=== PATIENT | female | born 1990 | race Caucasian/White ===

== ENCOUNTER 2016-07-08 08:28 | Emergency (ER) | payer MEDICAID ==
[~2016-07-08] VITALS: Ht 152.4 cm; Wt 62.0 kg
[~2016-07-08 08:28] MED LIST: FAMO-18 PO; FERR240T9 PO; FOLI0.4T2 PO; PREN-39 PO
[2016-07-08 08:34] VITALS: Ht 152.4 cm; Wt 62.0 kg
[2016-07-08] MEDS ORDERED: SOD CHLORIDE 0.9% 1,000 ML IV ONE (09:30)
[2016-07-08] MEDS ORDERED: ACETAMINOPHEN 325 MG TAB PO ONE (09:30)
[2016-07-08] MEDS ORDERED: DIPHENHYDRAMINE 25 MG CAP PO ONE (09:30)
--- NOTE | 2016-07-08 10:41 | ERD ---
ER Documentation Chief Complaint Date/Time DATE: 07/08/16 TIME: 10:35 Chief Complaint complains of right eye pain since this am HPI This is a 25-year-old female presenting to emergency department for headache and bilateral eye pain 1 day. Patient states symptoms started this morning. Patient has bitemporal headache that radiates from bilateral eyes. Patient states pain is throbbing. No drainage or tearing from eyes. No blurry vision or change in vision. No loss of vision or curtain coming down over eye. No floaters or flashing lights. No halos around lights. Denies weakness or fatigue. No facial droop. No fevers or chills. Patient states she is 10 weeks with last menstrual period 04/10/2016. Patient is a A0. Patient has nausea with no vomiting. No head trauma or injury. No rhinorrhea, nasal congestion or rhinitis. No relevant medical history. No surgical history. ROS All systems reviewed and are negative except as per history of present illness. Medications Home Meds Active Scripts Acetaminophen* (Acetaminophen*) 500 MG Extra Strength Tablet, 500 MG PO Q4H Y for PAIN AND OR ELEVATED TEMP, #15 TAB Prov:CANDY IBARRA NP 07/08/16 Famotidine* (Pepcid*) 20 Mg Tablet, 20 MG PO BID Y for PAIN, #30 TAB Prov:EMELY CASTILLO MD 10/17/14 Reported Medications Folic Acid* (Folic Acid*) 0.4 Mg Tablet, 0.8 MG PO DAILY, TAB 11/05/13 Ferrous Gluconate (Iron) 1 Tab Tablet, 1 TAB PO DAILY 11/05/13 Vits W-Ca,Fe,Fa(<1MG) ( Vitamins) 1 Tab Tablet, 1 TAB PO DAILY 09/19/13 Allergies Allergies: Coded Allergies: No Known Drug Allergies (Verified Allergy, Unknown, 12/30/14) PMhx/Soc History of Surgery: No Anesthesia Reaction: No Hx Neurological Disorder: No Hx Respiratory Disorders: No Hx Cardiac Disorders: No Hx Psychiatric Problems: No Hx Miscellaneous Medical Probl: No Hx Alcohol Use: No Hx Substance Use: No Hx Tobacco Use: No Physical Exam Vitals Vital Signs Date Time Temp Pulse Resp B/P Pulse Ox O2 Delivery O2 Flow Rate FiO2 07/08/16 12:33 95 18 107/55 99 Room Air 07/08/16 08:34 98.1 104 20 124/64 98 Physical Exam Const: No acute distress, alert Head: Atraumatic Eyes: Normal Conjunctiva, PERRL, extraocular movements intact, no nystagmus ENT: Normal External Ears, Nose and Mouth. Neck: Full range of motion..~ No meningismus. Resp: Clear to auscultation bilaterally. No wheezing, rhonchi or crackles. Cardio: Regular rate and rhythm, no murmurs Abd: Soft, non tender, non distended. Normal bowel sounds Skin: No petechiae or rashes Back: No midline or flank tenderness Ext: No cyanosis, or edema Neur: Awake and alert Psych: Normal Mood and Affect Results 24 hrs Laboratory Tests Test 07/08/16 11:58 Bedside Urine pH (LAB) 8.5 Bedside Urine Protein (LAB) 1+ Bedside Urine Glucose (UA) Negative Bedside Urine Ketones (LAB) Negative Bedside Urine Blood Negative Bedside Urine Nitrite (LAB) Negative Bedside Urine Leukocyte Esterase (L Negative Current Medications Medications (Trade) Dose Ordered Sig/[place] Route PRN Reason Start Time Stop Time Status Last Admin Dose Admin Acetaminophen (Tylenol Tab) 650 mg ONCE ONCE PO 07/08/16 09:30 07/08/16 09:31 DC 07/08/16 09:20 Diphenhydramine HCl 25 mg 25 mg ONCE ONCE PO 07/08/16 09:30 07/08/16 09:31 DC 07/08/16 09:20 Sodium Chloride (NS) 1,000 ml @ 1,000 mls/hr Q1H ONCE IV 07/08/16 09:30 07/08/16 10:29 DC 07/08/16 09:20 Procedures/MDM Laboratory Urine dip 1+ protein MDM: 25-year-old female presents emergency department for bitemporal headache that radiates behind bilateral eye pain starting this morning. No subconjunctival hemorrhage or erythema to eye. No drainage or discharge from eye. No visual changes. No diplopia. Patient has throbbing headache to bitemporal area. No recent head injury or trauma. Patient has nausea with no vomiting. No neurological deficits. Physical exam is unremarkable. Patient is 10 weeks with last mental period 04/10/2016. Denies any vaginal bleeding or pelvic pain. No dysuria or hematuria. Visual acuity normal. Urine dip is negative for infection. Patient given Tylenol and Benadryl while in the ED. Due to patient being , other medications for treating headaches and migraines are contraindicated in patients. Upon reassessment, patient's headache has improved. No active vomiting while in the ED. Consulted Dr. Flor regarding this patient and we agree that patient is appropriate for outpatient management. Low suspicion for intracranial hemorrhage, mass, CVA or TIA. Patient's diagnosis is likely tension headache vs. migraine headache. Patient is appropriate for outpatient management and instructed patient to follow up with PCP int he next 2-3 days for reassessment. Return to ED for any new or worsening symptoms. Patient verbalizes understanding. All questions answered at discharge. Departure Diagnosis: Primary Impression: Headache Headache type: unspecified Headache chronicity pattern: acute headache Intractability: not intractable Qualified Code: R51 - Acute nonintractable headache, unspecified headache type Condition: Stable CANDY IBARRA NP July 08, 2016 10:41
[2016-07-08 11:57] LABS: URINE BLOOD (Dip) POC Negative (NEGATIVE)
[2016-07-08] MEDS ORDERED: ACET-141 PO (12:28)
[2016-07-08 12:33] VITALS: BP 107/55; PULSE 95; RESP 18
== END 2016-07-08 13:10 | disposition home or self-care (01) ==
LOC: FTE 08:28
DX: R51 Headache (principal)
CPT/HCPCS: 81003; J7030; Z7502; Z7610

== ENCOUNTER 2016-12-13 15:34 | Inpatient (IN) | payer MEDICAID ==
[~2016-12-13] VITALS: Ht 154.9 cm; Wt 69.0 kg
[~2016-12-13 15:34] MED LIST changes: +ACET-141 PO; -FAMO-18 PO; +FAMO-96 PO
[2016-12-13 15:46] VITALS: Ht 154.9 cm; Wt 69.0 kg
[2016-12-13 15:47] VITALS: BP 106/59; PULSE 109
--- NOTE | 2016-12-13 18:00 | RADRPT ---
PROCEDURE: Limited obstetric ultrasound CLINICAL INDICATION: Pain TECHNIQUE: Multiple transverse and longitudinal grayscale images of the pelvis were obtained camarena sabdominally and transvaginally.. COMPARISON: None FINDINGS: The cervix is closed with a length of 2.95 cm. There is a single viable intrauterine gestation. Cardiac activity is present with 144 beats per min [place]. There is a vertex presentation. The placenta is anterior. There is no evidence for an abruption or placenta previa. RPTAT: AA IMPRESSION: Cervix length measures 2.95 cm. .Ambrocio Luna MD, MD Date Time Electronically viewed and signed by .Ambrocio Luna MD, on 12/13/2016 18:00 .S/
[2016-12-13 18:17] LABS: ADD UMIC YES; UR ASCORBIC ACID 20 mg/dL (NEGATIVE); UR BACTERIA FEW /HPF (NONE SEEN); UR BILIRUBIN (Dip) NEGATIVE (NEGATIVE); UR BLOOD (Dip) NEGATIVE (NEGATIVE); UR CLARITY CLOUDY (CLEAR); UR COLOR AMBER (YELLOW); UR GLUCOSE (Dip) NEGATIVE (NEGATIVE); UR KETONES (Dip) 2+ mg/dL (NEGATIVE); UR LEUKOCYTE ESTERASE (Dip) 3+ Leu/ul (NEGATIVE); UR MUCUS MANY /HPF (NONE SEEN); UR NITRITE (Dip) NEGATIVE (NEGATIVE); UR RBC 13 /HPF (0-5); UR SPECIFIC GRAVITY (Dip) 1.021 (1.003-1.030); UR SQUAMOUS EPITHELIAL CELL FEW /HPF (FEW); UR TOTAL PROTEIN (Dip) 1+ mg/dl (NEGATIVE); UR UROBILINOGEN (Dip) 1+ mg/dL (NEGATIVE)
[2016-12-13] MEDS: LACTATED RINGER'S 1,000 ML IV SCH (20:19)
[2016-12-13] MEDS ORDERED: MAGNESIUM SULFATE 4 GM/100 ML 100 ML IV ONE (20:30)
[2016-12-13] MEDS ORDERED: AL HYDROX/MG HYDROX/SIMETH 30 ML CUP PO PRN (20:30)
[2016-12-13] MEDS ORDERED: ACETAMINOPHEN 325 MG TAB PO PRN (20:30)
[2016-12-13] MEDS: BETAMET NA PHOS/AC(6 MG/ML) 5ML INJ IM SCH (21:09)
--- NOTE | 2016-12-13 21:13 | TRIAGE ---
OB Triage Datetime Report Generated by CPN: 12/13/2016 21:13 Datetime: 12/13/2016 20:00 Stage of : Antepartum Datetime: 12/13/2016 19:45 Stage of : OB Triage Datetime: 12/13/2016 19:39 Stage of : OB Triage Monitor Mode: External Quality: Mild Pattern: Normal: <= 5 Contractions in 10 Minutes Resting Tone [place]: Relaxed Heart Rate FHR Baseline Rate: 130 Monitor Mode: External US FHR Baseline Changes: No Baseline Change Variability: Moderate 6-25 bpm Accelerations: 15X15 Decelerations: None Category: Category I Pain Assessment Pain Scale: 0 Pain Presence: None/Denies Pain Type: N/A Vaginal Exam Dilatation (cms): 1.0 Effacement (%): 40 Station: -3 Exam By: Vincenzo DENG Membrane Status: Intact Vaginal Bleeding: None Cervix, Consistency: Soft Cervix, Position: Posterior Presentation 'A': Cephalic Datetime: 12/13/2016 18:24 Stage of : OB Triage Datetime: 12/13/2016 17:32 Labor Evaluation Frequency: 0 Monitor Mode: External Resting Tone [place]: Relaxed Heart Rate FHR Baseline Rate: 135 Monitor Mode: External US Variability: Moderate 6-25 bpm Decelerations: None Pain Assessment Pain Scale: 0 Pain Presence: None/Denies Pain Type: N/A Pain Goal: 3 Pain Relief Measures: Comfort Measures Datetime: 12/13/2016 16:41 Labor Evaluation Frequency: OCCAS Monitor Mode: External Duration (sec)2399: 50-60 Quality: Mild Pattern: Normal: <= 5 Contractions in 10 Minutes Resting Tone [place]: Relaxed Heart Rate FHR Baseline Rate: 135 Monitor Mode: External US Variability: Moderate 6-25 bpm Accelerations: 10X10 Decelerations: None Category: Category I Pain Assessment Pain Scale: 1 Pain Presence: Intermittent Pain Type: Cramping Pain Goal: 3 Pain Relief Measures: Comfort Measures Datetime: 12/13/2016 15:50 Stage of : OB Triage Datetime: 12/13/2016 15:42 Stage of : OB Triage Assessment Type: Triage EGA: 33.0 Arrived By: Wheelchair Maternal Assessment Level of Consciousness: Fully Conscious DTR's/Clonus: DTRs 2+; No Clonus Headache: Denies Blurred Vision: No Respiratory Effort: Unlabored; Regular Rhythm; Equal Expansion Breath Sounds, Left: Clear and Equal Breath Sounds, Right: Clear and Equal Nausea/Vomiting: Denies RUQ Epigastric Pain: Denies Facial Edema: None Temperature Route: Axillary Fall Risk Assessment History of Falling: (0) No Secondary Diagnosis: (0) No Ambulatory Aid: (0) Bedrest/Nurse Assist IV Therapy: (0) No Gait: (0) Normal/Bedrest/Immobile Mental Status: (0) Oriented to Own Ability Fall Score: 0 Fall Risk Score Definition: No Risk: No action required Labor Evaluation Frequency: 0 Monitor Mode: External Resting Tone [place]: Relaxed Heart Rate FHR Baseline Rate: 135 Monitor Mode: External US Variability: Moderate 6-25 bpm Accelerations: None Decelerations: None Category: Category I Pain Assessment Pain Scale: 0 Pain Presence: None/Denies Pain Type: Cramping (Annotations: WHEN WALKING, OR WHEN BABY MOVING) Pain Location: Abdomen Pain Goal: 3 Pain Relief Measures: Comfort Measures Datetime: 12/13/2016 15:40 Time of Arrival: 12/13/2016 15:25 Arrived By: Ambulatory Arrived From: Office Chief Complaint: SENT FROM DR OFFICE TO R/O PTL, DENIES LEAKING, SCANT BROWN DISCHARGE 2 DAYS AG O, UC'S Q 10 MIN Movement: Present Contractions: Regular Contractions: 10 Rupture of Membranes: Denies Vaginal Bleeding: None Vaginal Discharge: Denies Recent Sexual Intercouse: Denies Abdominal Trauma: Not Applicable Patient Complaints: Contractions Time Provider Notified: 12/13/2016 15:50 Provider Notified: terence Initial Plan: MONITOR, CERVICAL LENGTH, URINALYSIS
[2016-12-13] MEDS: MAGNESIUM SULFATE 20 GM/500 ML 500 ML IV SCH (21:48)
[2016-12-13 21:50] LABS: BASOPHILS % 0.3 % (0.0-2.0); EOSINOPHILS # 0.1 10^3/ul (0.0-0.5); EOSINOPHILS % 0.6 % (0.0-7.0); HEMATOCRIT 31.1 % (37.0-47.0); HEMOGLOBIN 9.8 g/dl (12.0-16.0); LYMPHOCYTES # 1.4 10^3/ul (0.8-2.9); LYMPHOCYTES % 14.3 % (15.0-51.0); MEAN CORPUSCULAR HEMOGLOBIN 27.1 pg (29.0-33.0); MEAN CORPUSCULAR HGB CONC 31.5 g/dl (32.0-37.0); MEAN CORPUSCULAR VOLUME 86.1 fl (82.0-101.0); MEAN PLATELET VOLUME 11.7 fl (7.4-10.4); MONOCYTE # 1.1 10^3/ul (0.3-0.9); MONOCYTES % 10.5 % (0.0-11.0); NEUTROPHIL # 7.4 10^3/ul (1.6-7.5); NEUTROPHILS % 73.5 % (39.0-77.0); PLATELET COUNT 158 10^3/UL (140-415); RED BLOOD COUNT 3.61 10^6/ul (4.20-5.40); RED CELL DISTRIBUTION WIDTH 14.2 % (11.5-14.5)
[2016-12-13 22:14] LABS: INR 1.01; PROTIME 13.3 Sec (12.2-14.2)
[2016-12-13 22:15] LABS: PARTIAL THROMBOPLASTIN TIME 35.4 Sec (25.0-35.0)
[2016-12-14] MEDS: LACTATED RINGER'S 1,000 ML IV SCH ×2 (06:24→18:36)
[2016-12-14] MEDS: MAGNESIUM SULFATE 20 GM/500 ML 500 ML IV SCH ×2 (06:37→16:37)
[2016-12-14] MEDS: PRENATAL VITAMIN PO SCH (09:08)
--- NOTE | 2016-12-14 19:20 | HP ---
Date/Time of Note Date/Time of Note DATE: 12/14/16 TIME: 19:18 OB - History Hx of Present Chief Complaint: contractions Estimated Due Date: Jan 31, 2017 : 5 Para: 4 Spontaneous : 0 Therapeutic : 0 Care: Good Care Ultrasounds: Normal mid trimester US Obstetrical Complications: None Medical Complications: None Past Family/Social History * Past Medical, Surgical, Family and Obstetric Histories reviewed from chart. OB Admission Exam Vital Signs Vital Signs Vital Signs Date Time Temp Pulse Resp B/P Pulse Ox O2 Delivery O2 Flow Rate FiO2 12/13/16 15:47 98.5 109 106/59 Physical Exam HEENT: WNL Heart: Rhythm Normal Lungs: Clear, Equal Abdomen: WNL Extremities: Normal Reflexes: Normal Cervical Dilatation: 1cm Effacement: 50% Station: -1 Membranes: Intact Heart Rate: 130's Accelerations: Accelerations Present Decelerations: No Decelerations Varibility: Moderate Last 72 hours Lab Results CBC & BMP 12/13/16 20:15 Magnesium Level Test 12/14/16 06:02 12/14/16 11:59 Magnesium Level 4.6 H 4.8 H OB Assessment/Plan Reason for admission: labor Plan: Other Other plan: IV magnesium sulfate IM betamethasone SETH VELEZ MD Dec 14, 2016 19:20
[2016-12-14] MEDS: BETAMET NA PHOS/AC(6 MG/ML) 5ML INJ IM SCH (21:12)
[2016-12-15] MEDS: MAGNESIUM SULFATE 20 GM/500 ML 500 ML IV SCH (01:33)
[2016-12-15] MEDS: LACTATED RINGER'S 1,000 ML IV SCH (07:21)
[2016-12-15] MEDS: PRENATAL VITAMIN PO SCH ×2 (09:00→09:13)
[2016-12-15] MEDS: NIFEdipine 10 MG CAP PO SCH ×2 (11:38→17:42)
--- NOTE | 2016-12-15 17:13 | QN ---
Documentation Comment Patient has been off magnesium sulfate andis doing well. Patient denies feeling any contractions. SETH VELEZ MD Dec 15, 2016 17:13
--- NOTE | 2016-12-15 17:14 | DS ---
Date/Time of Note Date/Time of Note DATE: 12/15/16 TIME: 17:13 Obstetrical Discharge Record Final Diagnosis Final Diagnosis: not delivered Other Final Diagnosis Threatened labor. Complications Labor Tocolytics: Magnesium Sulfate Condition on Discharge Physical Assessment Voiding: Yes Bowel Movement: Yes Calf Tenderness: No Patient Condition: Stable SETH VELEZ MD Dec 15, 2016 17:14
== END 2016-12-15 18:00 | disposition home or self-care (01) | DRG 780 ==
LOC: OBT 15:34 → L-D 15:36 → OBG 20:16 → OBT 20:16
PROVIDERS: ADMIT Obstetrics & Gynecology; ATTEND Obstetrics & Gynecology
DX: O47.03 False labor before 37 completed weeks of gestation, third trimester (principal); Z3A.33 33 weeks gestation of pregnancy
CPT/HCPCS: 36415; 76817; 81001; 83735; 85025; 85610; 85730; 86592; 86900; 86901; 87086; 96360; G0463; J0702; J3475; J7120

== ENCOUNTER 2017-01-12 17:56 | Outpatient (CLI) | payer MEDICAID, OTHER ==
[~2017-01-12] VITALS: Ht 154.9 cm; Wt 74.7 kg
[~2017-01-12 17:56] MED LIST changes: -ACET-141 PO
[2017-01-12 18:35] VITALS: BP 118/56; PULSE 89; RESP 20; Ht 154.9 cm; Wt 74.7 kg
--- NOTE | 2017-01-12 22:30 | RADRPT ---
PROCEDURE: Biophysical profile. CLINICAL INDICATION: Pelvic pain. TECHNIQUE: Multiple sonographic images of the pelvis were obtained with transabdominal technique. COMPARISON: 12/13/2016. FINDINGS: There is a single living intrauterine gestation with the fetus in a vertex position. The placenta i s anterior in location, grade II to III. heart tones of 143 beats per minute are identified. There is normal amniotic fluid volume with an DB of 9.8 cm. breathing movements = 2 Gross body movements = 2 tone = 2 Qualitative AFV = 2 IMPRESSION: Biophysical profile 8 out of 8. .Dominic Obrien MD, MD Date Time Electronically viewed and signed by .Dominic Obrien MD, MD on 01/12/2017 22:30 .T/
--- NOTE | 2017-01-12 23:26 | TRIAGE ---
OB Triage Datetime Report Generated by CPN: 01/12/2017 23:25 Datetime: 01/12/2017 22:38 Labor Evaluation Frequency: x3 Monitor Mode: External Duration (sec)2399: 40-100 Quality: Mild Resting Tone [place]: Relaxed Heart Rate FHR Baseline Rate: 135 Monitor Mode: External US Variability: Moderate 6-25 bpm Accelerations: 15X15 Decelerations: None Category: Category I Datetime: 01/12/2017 22:36 Stage of : OB Triage Datetime: 01/12/2017 22:03 Monitor Mode: External Monitor Mode: External US Datetime: 01/12/2017 21:53 Stage of : OB Triage Datetime: 01/12/2017 21:46 Stage of : OB Triage Datetime: 01/12/2017 21:32 Stage of : OB Triage Datetime: 01/12/2017 21:31 Stage of : OB Triage Labor Evaluation Frequency: x5 Monitor Mode: External Duration (sec)2399: 40-110 Quality: Mild Resting Tone [place]: Relaxed Heart Rate FHR Baseline Rate: 135 Monitor Mode: External US Variability: Moderate 6-25 bpm Accelerations: 15X15 Decelerations: None Category: Category I Datetime: 01/12/2017 20:54 Vaginal Exam Dilatation (cms): 3.5 Effacement (%): 50 Station: -3 Exam By: M YEAGER Vaginal Bleeding: None Cervix, Consistency: Firm Cervix, Position: Posterior Presentation 'A': Cephalic Datetime: 01/12/2017 20:15 Stage of : OB Triage Labor Evaluation Frequency: Occasional Monitor Mode: External Duration (sec)2399: 40-80 Quality: Mild Resting Tone [place]: Relaxed Heart Rate FHR Baseline Rate: 140 Monitor Mode: External US Variability: Moderate 6-25 bpm Accelerations: 15X15 Decelerations: None Category: Category I Datetime: 01/12/2017 19:17 Stage of : OB Triage Labor Evaluation Frequency: X5 Monitor Mode: External Duration (sec)2399: 40-130 Quality: Mild Resting Tone [place]: Relaxed Heart Rate FHR Baseline Rate: 140 Monitor Mode: External US Variability: Moderate 6-25 bpm Accelerations: 15X15 Decelerations: None Category: Category I Datetime: 01/12/2017 18:06 Maternal Assessment Level of Consciousness: Fully Conscious DTR's/Clonus: DTRs 2+ Headache: Denies Blurred Vision: No Nausea/Vomiting: Denies RUQ Epigastric Pain: Denies Facial Edema: None Labor Evaluation Frequency: 7-9 Monitor Mode: External Duration (sec)2399: 80 Quality: Moderate Pattern: Normal: <= 5 Contractions in 10 Minutes Resting Tone [place]: Relaxed Heart Rate FHR Baseline Rate: 160 Monitor Mode: External US FHR Baseline Changes: No Baseline Change Variability: Moderate 6-25 bpm Accelerations: 15X15 Decelerations: None Category: Category I Pain Assessment Pain Scale: 5 Pain Presence: Intermittent Pain Type: Contraction Pain Location: Abdomen Membrane Status: Intact Datetime: 01/12/2017 17:50 Time of Arrival: 01/12/2017 17:50 EGA: 37.2 Arrived By: Ambulatory Arrived From: Home Chief Complaint: UCS Movement: Present Contractions: Regular Time Contractions Began: 01/12/2017 07:00 Contractions: IRREG Rupture of Membranes: Denies Vaginal Bleeding: None Vaginal Discharge: Denies Recent Sexual Intercouse: Denies Abdominal Trauma: Not Applicable Patient Complaints: Contractions Provider Notified: DR VELEZ Initial Plan: EFM,CALL DR VELEZ Datetime: 12/15/2016 16:55 Labor Evaluation Frequency: NONE Pattern: Normal: <= 5 Contractions in 10 Minutes Heart Rate FHR Baseline Rate: 145 Monitor Mode: External US FHR Baseline Changes: No Baseline Change Variability: Moderate 6-25 bpm Accelerations: 15X15 Decelerations: None Category: Category I Pain Assessment Pain Scale: 0 Pain Presence: None/Denies Pain Goal: 0 Membrane Status: Intact Datetime: 12/15/2016 16:00 Maternal Assessment Level of Consciousness: Fully Conscious DTR's/Clonus: DTRs 2+ Headache: Denies Blurred Vision: No Nausea/Vomiting: Denies RUQ Epigastric Pain: Denies Facial Edema: None Heart Rate FHR Baseline Rate: 145 Monitor Mode: External US FHR Baseline Changes: No Baseline Change Variability: Moderate 6-25 bpm Accelerations: 15X15 Decelerations: None Category: Category I Membrane Status: Intact Datetime: 12/15/2016 15:01 Pattern: Normal: <= 5 Contractions in 10 Minutes Heart Rate FHR Baseline Rate: 135 Monitor Mode: External US FHR Baseline Changes: No Baseline Change Variability: Moderate 6-25 bpm Accelerations: 15X15 Decelerations: None Category: Category I Pain Assessment Pain Scale: 0 Pain Presence: None/Denies Pain Goal: 0 Membrane Status: Intact Datetime: 12/15/2016 13:58 Labor Evaluation Frequency: NONE Pattern: Normal: <= 5 Contractions in 10 Minutes Heart Rate FHR Baseline Rate: 135 Monitor Mode: External US FHR Baseline Changes: No Baseline Change Variability: Moderate 6-25 bpm Accelerations: 15X15 Decelerations: None Category: Category I Pain Assessment Pain Scale: 0 Pain Presence: None/Denies Pain Goal: 0 Membrane Status: Intact Datetime: 12/15/2016 13:00 Labor Evaluation Frequency: NONE Pattern: Normal: <= 5 Contractions in 10 Minutes Heart Rate FHR Baseline Rate: 145 Monitor Mode: External US FHR Baseline Changes: No Baseline Change Variability: Moderate 6-25 bpm Accelerations: 15X15 Decelerations: None Category: Category I Pain Assessment Pain Scale: 0 Pain Presence: None/Denies Pain Goal: 0 Membrane Status: Intact Datetime: 12/15/2016 11:57 Maternal Assessment Level of Consciousness: Fully Conscious DTR's/Clonus: DTRs 2+ Headache: Denies Blurred Vision: No Nausea/Vomiting: Denies RUQ Epigastric Pain: Denies Facial Edema: None Labor Evaluation Frequency: NONE Pattern: Normal: <= 5 Contractions in 10 Minutes Heart Rate FHR Baseline Rate: 140 Monitor Mode: External US FHR Baseline Changes: No Baseline Change Variability: Moderate 6-25 bpm Accelerations: 15X15 Decelerations: Variable Category: Category I Pain Assessment Pain Scale: 0 Pain Presence: None/Denies Pain Goal: 0 Membrane Status: Intact Datetime: 12/15/2016 11:00 Labor Evaluation Frequency: none Pattern: Normal: <= 5 Contractions in 10 Minutes Heart Rate FHR Baseline Rate: 130 Monitor Mode: External US FHR Baseline Changes: No Baseline Change Variability: Moderate 6-25 bpm Accelerations: 15X15 Decelerations: None Category: Category I Pain Assessment Pain Scale: 0 Pain Presence: None/Denies Pain Goal: 0 Membrane Status: Intact Datetime: 12/15/2016 09:56 Labor Evaluation Frequency: NONE Pattern: Normal: <= 5 Contractions in 10 Minutes Heart Rate FHR Baseline Rate: 120 Monitor Mode: External US FHR Baseline Changes: No Baseline Change Variability: Moderate 6-25 bpm Accelerations: 15X15 Decelerations: None Category: Category I Pain Assessment Pain Scale: 0 Pain Presence: None/Denies Pain Goal: 0 Pain Assessment Comments: PT DENIES C/O PAIN Membrane Status: Intact Datetime: 12/15/2016 09:00 Respiratory Effort: Unlabored Breath Sounds, Left: Clear and Equal Breath Sounds, Right: Clear and Equal Labor Evaluation Frequency: NONE Pattern: Normal: <= 5 Contractions in 10 Minutes Heart Rate FHR Baseline Rate: 135 Monitor Mode: External US FHR Baseline Changes: No Baseline Change Variability: Moderate 6-25 bpm Accelerations: 15X15 Decelerations: None Category: Category I Pain Assessment Pain Scale: 0 Pain Presence: None/Denies Pain Type: N/A Pain Goal: 0 Membrane Status: Intact Datetime: 12/15/2016 08:00 Maternal Assessment Level of Consciousness: Fully Conscious DTR's/Clonus: DTRs 2+ Headache: Denies Blurred Vision: No RUQ Epigastric Pain: Denies Facial Edema: None Labor Evaluation Frequency: none Pattern: Normal: <= 5 Contractions in 10 Minutes Heart Rate FHR Baseline Rate: 130 Monitor Mode: External US FHR Baseline Changes: No Baseline Change Variability: Moderate 6-25 bpm Accelerations: 15X15 Decelerations: None Category: Category I Pain Assessment Pain Scale: 1 Pain Presence: None/Denies Pain Goal: 1 Membrane Status: Intact Datetime: 12/15/2016 07:36 Maternal Assessment Level of Consciousness: Fully Conscious DTR's/Clonus: DTRs 2+; No Clonus Headache: Denies Blurred Vision: No Respiratory Effort: Unlabored; Regular Rhythm; Equal Expansion Breath Sounds, Left: Clear and Equal Breath Sounds, Right: Clear and Equal Nausea/Vomiting: Denies RUQ Epigastric Pain: Denies Facial Edema: None Fall Risk Assessment History of Falling: (0) No Secondary Diagnosis: (0) No Ambulatory Aid: (0) Bedrest/Nurse Assist IV Therapy: (0) No Gait: (0) Normal/Bedrest/Immobile Mental Status: (0) Oriented to Own Ability Fall Score: 0 Fall Risk Score Definition: No Risk: No action required Datetime: 12/15/2016 07:30 Maternal Assessment Level of Consciousness: Fully Conscious DTR's/Clonus: DTRs 2+ Headache: Denies Blurred Vision: No Respiratory Effort: Unlabored Breath Sounds, Left: Clear and Equal Breath Sounds, Right: Clear and Equal RUQ Epigastric Pain: Denies Facial Edema: None Labor Evaluation Frequency: NONE Pattern: Normal: <= 5 Contractions in 10 Minutes Heart Rate FHR Baseline Rate: 120 Monitor Mode: External US FHR Baseline Changes: No Baseline Change Variability: Moderate 6-25 bpm Accelerations: 15X15 Decelerations: None Category: Category I Pain Assessment Pain Scale: 0 Pain Presence: None/Denies Pain Goal: 0 Membrane Status: Intact Datetime: 12/15/2016 07:00 Labor Evaluation Frequency: 0 Monitor Mode: External Heart Rate FHR Baseline Rate: 115 Monitor Mode: External US FHR Baseline Changes: No Baseline Change Variability: Moderate 6-25 bpm Accelerations: 15X15 Decelerations: None Category: Category I Datetime: 12/15/2016 06:00 Labor Evaluation Frequency: 0 Monitor Mode: External Heart Rate FHR Baseline Rate: 120 Monitor Mode: External US FHR Baseline Changes: No Baseline Change Variability: Moderate 6-25 bpm Accelerations: 15X15 Decelerations: None Category: Category I Datetime: 12/15/2016 05:00 Labor Evaluation Frequency: X1 Monitor Mode: External Duration (sec)2399: 50 Quality: Mild Resting Tone [place]: Relaxed Heart Rate FHR Baseline Rate: 120 Monitor Mode: External US FHR Baseline Changes: No Baseline Change Variability: Moderate 6-25 bpm Accelerations: 15X15 Decelerations: None Category: Category I Datetime: 12/15/2016 04:00 Labor Evaluation Frequency: 0 Monitor Mode: External Heart Rate FHR Baseline Rate: 130 Monitor Mode: External US FHR Baseline Changes: No Baseline Change Variability: Moderate 6-25 bpm Accelerations: 15X15 Decelerations: None Category: Category I Datetime: 12/15/2016 03:39 Maternal Assessment Level of Consciousness: SLEEPING Breath Sounds, Left: Clear and Equal Breath Sounds, Right: Clear and Equal Temperature Route: Oral Pain Assessment Pain Scale: 0 Datetime: 12/15/2016 03:00 Labor Evaluation Frequency: 0 Monitor Mode: External Heart Rate FHR Baseline Rate: 120 Monitor Mode: External US FHR Baseline Changes: No Baseline Change Variability: Moderate 6-25 bpm Accelerations: 15X15 Decelerations: None Category: Category I Datetime: 12/15/2016 02:00 Labor Evaluation Frequency: 0 Monitor Mode: External Heart Rate FHR Baseline Rate: 120 Monitor Mode: External US FHR Baseline Changes: No Baseline Change Variability: Moderate 6-25 bpm Accelerations: 15X15 Decelerations: None Category: Category I Datetime: 12/15/2016 01:00 Labor Evaluation Frequency: 0 Monitor Mode: External Heart Rate FHR Baseline Rate: 125 Monitor Mode: External US FHR Baseline Changes: No Baseline Change Variability: Moderate 6-25 bpm Accelerations: 15X15 Decelerations: None Category: Category I Datetime: 12/15/2016 00:04 Labor Evaluation Frequency: 0 Monitor Mode: External Heart Rate FHR Baseline Rate: 130 Monitor Mode: External US FHR Baseline Changes: No Baseline Change Variability: Moderate 6-25 bpm Accelerations: 15X15 Decelerations: None Category: Category I Datetime: 12/14/2016 23:39 Maternal Assessment Level of Consciousness: Fully Conscious DTR's/Clonus: DTRs 2+ Breath Sounds, Left: Clear and Equal Breath Sounds, Right: Clear and Equal Temperature Route: Oral Pain Assessment Pain Scale: 0 Datetime: 12/14/2016 23:00 Labor Evaluation Frequency: 0 Monitor Mode: External Heart Rate FHR Baseline Rate: 130 Monitor Mode: External US FHR Baseline Changes: No Baseline Change Variability: Moderate 6-25 bpm Accelerations: 15X15 Decelerations: None Category: Category I Datetime: 12/14/2016 22:00 Labor Evaluation Frequency: 0 Monitor Mode: External Heart Rate FHR Baseline Rate: 130 Monitor Mode: External US FHR Baseline Changes: No Baseline Change Variability: Moderate 6-25 bpm Accelerations: 15X15 Decelerations: None Category: Category I Datetime: 12/14/2016 21:00 Labor Evaluation Frequency: 0 Monitor Mode: External Interventions: Side to Side Heart Rate FHR Baseline Rate: 130 Monitor Mode: External US FHR Baseline Changes: No Baseline Change Variability: Moderate 6-25 bpm Accelerations: 15X15 Decelerations: None Category: Category I Datetime: 12/14/2016 20:00 Labor Evaluation Frequency: 0 Monitor Mode: External Heart Rate FHR Baseline Rate: 130 Monitor Mode: External US FHR Baseline Changes: No Baseline Change Variability: Moderate 6-25 bpm Accelerations: 15X15 Decelerations: None Category: Category I Datetime: 12/14/2016 19:39 Assessment Type: Ongoing Assessment Maternal Assessment Level of Consciousness: Fully Conscious DTR's/Clonus: DTRs 2+; No Clonus Headache: Denies Blurred Vision: No Respiratory Effort: Unlabored; Regular Rhythm; Equal Expansion Breath Sounds, Left: Clear and Equal Breath Sounds, Right: Clear and Equal Nausea/Vomiting: Denies RUQ Epigastric Pain: Denies Lower Extremities Edema: None Upper Extremities Edema: None Facial Edema: None Temperature Route: Oral Fall Risk Assessment History of Falling: (0) No Secondary Diagnosis: (0) No Ambulatory Aid: (0) Bedrest/Nurse Assist IV Therapy: (20) Yes Gait: (0) Normal/Bedrest/Immobile Mental Status: (0) Oriented to Own Ability Fall Score: 20 Fall Risk Score Definition: No Risk: No action required Pain Assessment Pain Scale: 0 Datetime: 12/14/2016 18:48 Maternal Assessment Level of Consciousness: Fully Conscious DTR's/Clonus: DTRs 2+ Headache: Denies Blurred Vision: No Nausea/Vomiting: Denies RUQ Epigastric Pain: Denies Facial Edema: None Labor Evaluation Frequency: NONE Pattern: Normal: <= 5 Contractions in 10 Minutes Resting Tone [place]: Relaxed Heart Rate FHR Baseline Rate: 135 Monitor Mode: External US FHR Baseline Changes: No Baseline Change Variability: Moderate 6-25 bpm Accelerations: 15X15 Decelerations: None Category: Category I Pain Assessment Pain Scale: 0 Pain Presence: None/Denies Pain Goal: 0 Membrane Status: Intact Datetime: 12/14/2016 16:59 Maternal Assessment Level of Consciousness: Fully Conscious DTR's/Clonus: DTRs 2+ Headache: Denies Blurred Vision: No Respiratory Effort: Unlabored Breath Sounds, Left: Clear and Equal Breath Sounds, Right: Clear and Equal Nausea/Vomiting: Denies RUQ Epigastric Pain: Denies Facial Edema: None Labor Evaluation Frequency: NONE Pattern: Normal: <= 5 Contractions in 10 Minutes Heart Rate FHR Baseline Rate: 125 Monitor Mode: External US FHR Baseline Changes: No Baseline Change Variability: Moderate 6-25 bpm Accelerations: 15X15 Decelerations: None Category: Category I Pain Assessment Pain Scale: 0 Pain Presence: None/Denies Pain Goal: 0 Membrane Status: Intact Datetime: 12/14/2016 16:04 Maternal Assessment Level of Consciousness: Fully Conscious DTR's/Clonus: DTRs 2+ Headache: Denies Blurred Vision: No Respiratory Effort: Unlabored Breath Sounds, Left: Clear and Equal Breath Sounds, Right: Clear and Equal Nausea/Vomiting: Denies RUQ Epigastric Pain: Denies Facial Edema: None Labor Evaluation Frequency: NONE Pattern: Normal: <= 5 Contractions in 10 Minutes Resting Tone [place]: Relaxed Heart Rate FHR Baseline Rate: 120 Monitor Mode: External US FHR Baseline Changes: No Baseline Change Variability: Moderate 6-25 bpm Accelerations: 15X15 Decelerations: None Category: Category I Pain Assessment Pain Scale: 0 Pain Presence: None/Denies Pain Goal: 0 Membrane Status: Intact Datetime: 12/14/2016 15:09 Maternal Assessment Level of Consciousness: Fully Conscious DTR's/Clonus: DTRs 1+ Headache: Denies Blurred Vision: No Nausea/Vomiting: Denies RUQ Epigastric Pain: Denies Facial Edema: None Labor Evaluation Frequency: NONE Pattern: Normal: <= 5 Contractions in 10 Minutes Heart Rate FHR Baseline Rate: 130 Monitor Mode: External US FHR Baseline Changes: No Baseline Change Variability: Moderate 6-25 bpm Accelerations: 15X15 Decelerations: None Category: Category I Pain Assessment Pain Scale: 0 Pain Presence: None/Denies Pain Goal: 0 Membrane Status: Intact Datetime: 12/14/2016 14:00 Maternal Assessment Level of Consciousness: Fully Conscious DTR's/Clonus: DTRs 1+ Headache: Denies Blurred Vision: No Respiratory Effort: Unlabored Breath Sounds, Left: Clear and Equal Breath Sounds, Right: Clear and Equal Nausea/Vomiting: Denies RUQ Epigastric Pain: Denies Facial Edema: None Labor Evaluation Frequency: IRRITABILITY Duration (sec)2399: 20 SEC Pattern: Normal: <= 5 Contractions in 10 Minutes Resting Tone [place]: Relaxed Heart Rate FHR Baseline Rate: 120 Monitor Mode: External US FHR Baseline Changes: No Baseline Change Variability: Moderate 6-25 bpm Accelerations: 15X15 Decelerations: None Category: Category I Pain Assessment Pain Scale: 0 Pain Presence: None/Denies Pain Goal: 0 Membrane Status: Intact Datetime: 12/14/2016 11:50 Maternal Assessment Level of Consciousness: Fully Conscious DTR's/Clonus: DTRs 2+ Headache: Denies Blurred Vision: No Respiratory Effort: Unlabored Breath Sounds, Left: Clear and Equal Breath Sounds, Right: Clear and Equal RUQ Epigastric Pain: Denies Facial Edema: None Labor Evaluation Frequency: NONE Pattern: Normal: <= 5 Contractions in 10 Minutes Heart Rate FHR Baseline Rate: 120 Monitor Mode: External US FHR Baseline Changes: No Baseline Change Variability: Moderate 6-25 bpm Accelerations: 15X15 Decelerations: None Category: Category I Pain Assessment Pain Scale: 0 Pain Presence: None/Denies Pain Type: N/A Pain Goal: 0 Membrane Status: Intact Datetime: 12/14/2016 11:05 Maternal Assessment Level of Consciousness: Fully Conscious DTR's/Clonus: DTRs 1+ Headache: Denies Blurred Vision: No Respiratory Effort: Unlabored Breath Sounds, Left: Clear and Equal Breath Sounds, Right: Clear and Equal Nausea/Vomiting: Denies RUQ Epigastric Pain: Denies Facial Edema: None Labor Evaluation Frequency: NONE Pattern: Normal: <= 5 Contractions in 10 Minutes Resting Tone [place]: Relaxed Heart Rate FHR Baseline Rate: 115 Monitor Mode: External US FHR Baseline Changes: No Baseline Change Variability: Minimal - Undetectable to <=5 bpm Accelerations: 10X10 Decelerations: None Category: Category I Pain Assessment Pain Scale: 0 Pain Presence: None/Denies Pain Type: N/A Pain Goal: 0 Pain Assessment Comments: PT DENIES PAIN AT THIS TIME Membrane Status: Intact Datetime: 12/14/2016 10:30 Maternal Assessment Level of Consciousness: Fully Conscious DTR's/Clonus: DTRs 2+ Headache: Denies Blurred Vision: No Nausea/Vomiting: Denies RUQ Epigastric Pain: Denies Facial Edema: None Labor Evaluation Frequency: IRREG Monitor Mode: External Duration (sec)2399: 40-50 Quality: Mild Pattern: Normal: <= 5 Contractions in 10 Minutes Resting Tone [place]: Relaxed Heart Rate FHR Baseline Rate: 120 Monitor Mode: External US FHR Baseline Changes: No Baseline Change Variability: Moderate 6-25 bpm Accelerations: 15X15 Decelerations: None Category: Category I Pain Assessment Pain Scale: 0 Pain Presence: None/Denies Pain Goal: 0 Pain Assessment Comments: PT DENIES PAIN Membrane Status: Intact Datetime: 12/14/2016 08:51 Maternal Assessment Level of Consciousness: Fully Conscious DTR's/Clonus: DTRs 2+ Headache: Denies Blurred Vision: No Respiratory Effort: Unlabored Breath Sounds, Left: Clear and Equal Breath Sounds, Right: Clear and Equal Nausea/Vomiting: Denies RUQ Epigastric Pain: Denies Facial Edema: None Labor Evaluation Frequency: IRREG Labor Evaluation Frequency: NONE Monitor Mode: External Duration (sec)2399: 40 Quality: Mild Pattern: Normal: <= 5 Contractions in 10 Minutes Resting Tone [place]: Relaxed Heart Rate FHR Baseline Rate: 115 Monitor Mode: External US FHR Baseline Changes: No Baseline Change Variability: Moderate 6-25 bpm Accelerations: 15X15 Decelerations: None Category: Category I Pain Assessment Pain Scale: 0 Pain Presence: None/Denies Pain Goal: 0 Membrane Status: Intact Datetime: 12/14/2016 07:29 Maternal Assessment Level of Consciousness: Fully Conscious DTR's/Clonus: DTRs 2+ Headache: Denies; Generalized Blurred Vision: No Respiratory Effort: Unlabored Breath Sounds, Left: Clear and Equal Breath Sounds, Right: Clear and Equal Nausea/Vomiting: Denies RUQ Epigastric Pain: Denies Facial Edema: None Labor Evaluation Frequency: irreg Monitor Mode: External Quality: Mild Pattern: Normal: <= 5 Contractions in 10 Minutes Resting Tone [place]: Relaxed Heart Rate FHR Baseline Rate: 110 Monitor Mode: External US FHR Baseline Changes: No Baseline Change Variability: Moderate 6-25 bpm Accelerations: 15X15 Decelerations: None Category: Category I Pain Assessment Pain Scale: 5 Pain Presence: Constant Pain Type: Ache Pain Location: Head Pain Goal: 0 Pain Relief Measures: Pain Medication Given Pain Assessment Comments: pt c/o headache Datetime: 12/14/2016 07:00 Labor Evaluation Frequency: X1 Monitor Mode: External Duration (sec)2399: 90 Quality: Mild Resting Tone [place]: Relaxed Heart Rate FHR Baseline Rate: 110 Monitor Mode: External US Comments: POOR QUALITY WHILE SLEEPING ON HER RIGHT SIDE. Datetime: 12/14/2016 06:00 Labor Evaluation Frequency: X1 Monitor Mode: External Duration (sec)2399: 120 Quality: Mild Resting Tone [place]: Relaxed Heart Rate FHR Baseline Rate: 110 Monitor Mode: External US FHR Baseline Changes: No Baseline Change Variability: Moderate 6-25 bpm Accelerations: 15X15 Decelerations: Variable Category: Category II Datetime: 12/14/2016 05:00 Labor Evaluation Frequency: X1 Monitor Mode: External Duration (sec)2399: 120 Quality: Mild Resting Tone [place]: Relaxed Heart Rate FHR Baseline Rate: 110 Monitor Mode: External US FHR Baseline Changes: No Baseline Change Variability: Moderate 6-25 bpm Accelerations: 15X15 Decelerations: None Category: Category I Datetime: 12/14/2016 04:39 Maternal Assessment Level of Consciousness: SLEEPING Breath Sounds, Left: Clear and Equal Breath Sounds, Right: Clear and Equal Temperature Route: Oral Pain Assessment Pain Scale: 0 Datetime: 12/14/2016 04:00 Labor Evaluation Frequency: X1 Monitor Mode: External Duration (sec)2399: 90 Quality: Mild Resting Tone [place]: Relaxed Heart Rate FHR Baseline Rate: 110 Monitor Mode: External US FHR Baseline Changes: No Baseline Change Variability: Moderate 6-25 bpm Accelerations: 15X15 Decelerations: None Category: Category I Datetime: 12/14/2016 03:00 Labor Evaluation Frequency: X5 Monitor Mode: External Duration (sec)2399: 90-120 Quality: Mild Resting Tone [place]: Relaxed Heart Rate FHR Baseline Rate: 110 Monitor Mode: External US FHR Baseline Changes: No Baseline Change Variability: Moderate 6-25 bpm Accelerations: 15X15 Decelerations: None Category: Category I Datetime: 12/14/2016 02:00 Labor Evaluation Frequency: X4 Monitor Mode: External Duration (sec)2399: 80-120 Quality: Mild Resting Tone [place]: Relaxed Heart Rate FHR Baseline Rate: 120 Monitor Mode: External US Comments: POOR QUALITY Datetime: 12/14/2016 01:00 Labor Evaluation Frequency: 0 Monitor Mode: External Heart Rate FHR Baseline Rate: 125 Monitor Mode: External US FHR Baseline Changes: No Baseline Change Variability: Moderate 6-25 bpm Accelerations: 15X15 Decelerations: None Category: Category I Datetime: 12/14/2016 00:00 Labor Evaluation Frequency: X2 Monitor Mode: External Duration (sec)2399: 60-80 Quality: Mild Resting Tone [place]: Relaxed Heart Rate FHR Baseline Rate: 125 Monitor Mode: External US FHR Baseline Changes: No Baseline Change Variability: Moderate 6-25 bpm Accelerations: 15X15 Decelerations: None Category: Category I Datetime: 12/13/2016 23:42 Maternal Assessment Level of Consciousness: Fully Conscious DTR's/Clonus: DTRs 2+ Breath Sounds, Left: Clear and Equal Breath Sounds, Right: Clear and Equal Nausea/Vomiting: Denies Temperature Route: Oral Pain Assessment Pain Scale: 0 Datetime: 12/13/2016 23:41 Comments: BELTS OFF. ABD GENTLY RUBBED. SKIN DRY AND INTACT. BELLY BAND APPLIED. Datetime: 12/13/2016 23:00 Labor Evaluation Frequency: X2 Monitor Mode: External Duration (sec)2399: 60-120 Quality: Mild Resting Tone [place]: Relaxed Heart Rate FHR Baseline Rate: 130 Monitor Mode: External US Comments: POOR QUALITY WHILE SITTING UPRIGHT Datetime: 12/13/2016 22:00 Labor Evaluation Frequency: X3 Monitor Mode: External Duration (sec)2399: 60-120 Quality: Mild Resting Tone [place]: Relaxed Heart Rate FHR Baseline Rate: 130 Monitor Mode: External US FHR Baseline Changes: No Baseline Change Variability: Moderate 6-25 bpm Accelerations: 15X15 Decelerations: None Category: Category I Datetime: 12/13/2016 21:37 Comments: MAG TO 2 GM/HR Datetime: 12/13/2016 21:01 Maternal Assessment Level of Consciousness: Fully Conscious DTR's/Clonus: DTRs 2+ Breath Sounds, Left: Clear and Equal Breath Sounds, Right: Clear and Equal Nausea/Vomiting: Denies Datetime: 12/13/2016 21:00 Assessment Type: Admission Assessment Maternal Assessment Level of Consciousness: Fully Conscious Headache: Denies Blurred Vision: No Respiratory Effort: Unlabored; Regular Rhythm; Equal Expansion Nausea/Vomiting: Denies RUQ Epigastric Pain: Denies Lower Extremities Edema: None Upper Extremities Edema: None Facial Edema: None Fall Risk Assessment History of Falling: (0) No Secondary Diagnosis: (0) No Ambulatory Aid: (0) Bedrest/Nurse Assist IV Therapy: (20) Yes Gait: (0) Normal/Bedrest/Immobile Mental Status: (0) Oriented to Own Ability Fall Score: 20 Fall Risk Score Definition: No Risk: No action required Labor Evaluation Frequency: OCC Monitor Mode: External Quality: Mild Heart Rate FHR Baseline Rate: 135 Monitor Mode: External US FHR Baseline Changes: No Baseline Change Variability: Moderate 6-25 bpm Accelerations: 15X15 Decelerations: None Category: Category I Comments: FETUS VERY ACTIVE AT THIS TIME. Datetime: 12/13/2016 20:40 Stage of : Antepartum Temperature Route: Oral Datetime: 12/13/2016 15:42 EGA: 33.0 Fall Score: 0 Fall Risk Score Definition: No Risk: No action required
--- NOTE | 2017-01-13 09:53 | PN ---
Triage Information Date/Time Reason for visit: Uterine contractions Weeks of Gestation 37w /Para Diabetes: none Hypertention: none Objective Vital Signs Date Time Temp Pulse Resp B/P Pulse Ox O2 Delivery O2 Flow Rate FiO2 01/12/17 18:35 98.7 89 20 118/56 Room Air Heart Rate: 150's Contractions: 6-10 Minutes Apart Exam VE 3-4/50%/-2 no change after 2hrss Results/Medications Imaging Results BPP 88 DB 9.8 Disposition: Discharge Assessment/Plan [id number] latent phase Plan RTH 3days for repeat DB SABRINA BAKER MD Jan 13, 2017 09:53
== END 2017-01-12 22:45 | disposition home or self-care (01) ==
LOC: L-D 17:56 → OBT 17:56
PROVIDERS: ATTEND Obstetrics & Gynecology
DX: O62.9 Abnormality of forces of labor, unspecified (principal); Z3A.37 37 weeks gestation of pregnancy
CPT/HCPCS: 76818; G0463

== ENCOUNTER 2017-01-27 13:34 | Inpatient (IN) | payer MEDICAID ==
[~2017-01-27] VITALS: Ht 154.9 cm; Wt 77.0 kg
[2017-01-27 13:51] VITALS: Ht 154.9 cm; Wt 77.0 kg
[2017-01-27 13:52] VITALS: BP 127/65; PULSE 114
--- NOTE | 2017-01-27 14:56 | RADRPT ---
PROCEDURE: US OB. CLINICAL INDICATION: Size and dates TECHNIQUE: Multiple sonographic images of the pelvis and gravid uterus were obtained. The images were reviewed on a PACS workstation. COMPARISON: 01/12/17 FINDINGS: There is a single viable intrauterine gestation. Cardiac activity is present with 148 beats per min jeffrey. There is a vertex presentation. The placenta is anterior. There is no evidence for an abruption or placenta previa. Measurements were made in order to determine age. The results are as follows: BPD =9.6 cm HC =34 cm AC =37 cm FL =7.6 cm Estimated gestational age of approximately 39 weeks and 4 days based on ultrasound measurements. Clinical age: 39 weeks and 1 day. The estimated date of delivery is 01/30/17, based on ultrasound measurements. The EFW = 3976 g, 87.9%, based on LMP age. RPTAT: AA IMPRESSION: Single viable intrauterine gestation of approximately 39 weeks and 4 days based on ultrasound measu rements. .Ambrocio Luna MD, MD Date Time Electronically viewed and signed by .Ambrocio Luna MD, on 01/27/2017 14:56 .S/
[2017-01-27] MEDS ORDERED: LIDOCAINE 1% (MPF) 30 ML INJ INJ PRN (15:30)
[2017-01-27] MEDS ORDERED: BUTORPHANOL 2 MG INJ IV PRN (15:30)
[2017-01-27] MEDS ORDERED: CARBOPROST 250 MCG INJ IM PRN (15:30)
[2017-01-27] MEDS ORDERED: OXYTOCIN 30 UNITS/LR 500 ML IV SCH ×3 (15:30→23:30)
[2017-01-27] MEDS ORDERED: HYDROCODONE/APAP (5/325) TAB PO PRN (15:30)
[2017-01-27] MEDS ORDERED: MISOPROSTOL 200 MCG TAB PR PRN (15:30)
[2017-01-27] MEDS ORDERED: METHYLERGONOVINE 0.2 MG INJ IM PRN (15:30)
[2017-01-27] MEDS ORDERED: OXYTOCIN 30 UNITS/LR 500 ML IV PRN (15:30)
[2017-01-27] MEDS: LACTATED RINGER'S 1,000 ML IV SCH ×2 (15:36→22:46)
[2017-01-27] MEDS ORDERED: LACTATED RINGER'S 1,000 ML IV PRN (17:00)
[2017-01-27 17:28] LABS: BASOPHILS % 0.3 % (0.0-2.0); EOSINOPHILS # 0.1 10^3/ul (0.0-0.5); EOSINOPHILS % 0.7 % (0.0-7.0); HEMATOCRIT 33.5 % (37.0-47.0); HEMOGLOBIN 10.9 g/dl (12.0-16.0); LYMPHOCYTES # 1.5 10^3/ul (0.8-2.9); LYMPHOCYTES % 15.6 % (15.0-51.0); MEAN CORPUSCULAR HEMOGLOBIN 27.7 pg (29.0-33.0); MEAN CORPUSCULAR HGB CONC 32.5 g/dl (32.0-37.0); MEAN CORPUSCULAR VOLUME 85.2 fl (82.0-101.0); MEAN PLATELET VOLUME 11.8 fl (7.4-10.4); MONOCYTE # 0.9 10^3/ul (0.3-0.9); MONOCYTES % 8.8 % (0.0-11.0); NEUTROPHIL # 7.2 10^3/ul (1.6-7.5); NEUTROPHILS % 73.4 % (39.0-77.0); PLATELET COUNT 204 10^3/UL (140-415); RED BLOOD COUNT 3.93 10^6/ul (4.20-5.40); RED CELL DISTRIBUTION WIDTH 15.9 % (11.5-14.5); WHITE BLOOD COUNT 9.8 10^3/ul (4.8-10.8)
[2017-01-27 17:49] LABS: INR 0.94; PROTIME 12.6 Sec (12.2-14.2)
[2017-01-27 17:50] LABS: PARTIAL THROMBOPLASTIN TIME 30.5 Sec (25.0-35.0)
--- NOTE | 2017-01-27 20:21 | HP ---
Date/Time of Note Date/Time of Note DATE: 01/27/17 TIME: 20:19 OB - History Hx of Present Chief Complaint: contractions Estimated Due Date: Jan 31, 2017 : 5 Para: 4 Spontaneous : 0 Therapeutic : 0 Care: Good Care Ultrasounds: Normal mid trimester US Obstetrical Complications: None Medical Complications: None Past Family/Social History * Past Medical, Surgical, Family and Obstetric Histories reviewed from chart. GBS Status: Negative OB Admission Exam Vital Signs Vital Signs Vital Signs Date Time Temp Pulse Resp B/P Pulse Ox O2 Delivery O2 Flow Rate FiO2 01/27/17 13:52 97.8 114 127/65 Physical Exam HEENT: WNL Heart: Rhythm Normal Lungs: Clear, Equal Abdomen: WNL Extremities: Normal Reflexes: Normal Cervical Dilatation: 4cm Effacement: 50% Station: -2 Membranes: Intact Heart Rate: 130's Accelerations: Accelerations Present Decelerations: No Decelerations Varibility: Moderate Last 72 hours Lab Results CBC & BMP 01/27/17 15:37 OB Assessment/Plan Reason for admission: active labor Plan: Expectant Management SETH VELEZ MD Jan 27, 2017 20:21
[2017-01-28] MEDS ORDERED: ONDANSETRON 4 MG INJ IV PRN (01:00)
[2017-01-28] MEDS ORDERED: EPHEDrine SULFATE 50 MG/5 ML SYG IV PRN (01:00)
[2017-01-28] MEDS ORDERED: DIPHENHYDRAMINE 50 MG INJ IV PRN (01:00)
[2017-01-28] MEDS ORDERED: FENTAnyl 2MCG/ML-ROPIV 0.2% 100 ML BAG EPI SCH (01:00)
[2017-01-28] MEDS ORDERED: NALOXONE (0.4 MG/ML) INJ IV PRN (01:00)
--- NOTE | 2017-01-28 04:32 | LDN ---
Date/Time of Note Date/Time of Note DATE: 01/28/17 TIME: 04:31 Delivery Summary Weeks of Gestation 39 weeks anf 4 days Placenta Delivered: Spontaneously Meconium: none Episiotomy: No Perineal laceration: 0 Anesthesia type: Epidural Estimated blood loss: 100 Sponge & Needle done & correct: Yes All needle counts correct: Yes Any foreign bodies felt in the: No Problems: Infant Delivery Information Sex Sex: male Apgars 1 Minute: 9 5 Minute: 9 Suctioning Nose & mouth suctioned at [place]: Yes Delee suction performed: No Umbilical Cord Umbilical cord with: 3 Vessels Cord presentations: no nuchal cord Cord Blood was obtained: Yes Mother & Baby Disposition Disposition Mom & Baby to Maternity; Good: Yes SETH VELEZ MD Jan 28, 2017 04:32
[2017-01-28] MEDS ORDERED: LACTATED RINGER'S 1,000 ML IV* SCH (06:10)
[2017-01-28] MEDS ORDERED: BENZOCAINE 20% 56 ML SPRAY TOP PRN (06:30)
[2017-01-28] MEDS ORDERED: MISOPROSTOL 200 MCG TAB PR PRN (06:30)
[2017-01-28] MEDS ORDERED: DIBUCAINE 1% 30 GM OINT PR PRN (06:30)
[2017-01-28] MEDS ORDERED: ACETAMINOPHEN 325 MG TAB PO PRN (06:30)
[2017-01-28] MEDS ORDERED: WITCH HAZEL/GLYCERIN PAD PR PRN (06:30)
[2017-01-28] MEDS ORDERED: OXYTOCIN 30 UNITS/LR 500 ML IV PRN (06:30)
[2017-01-28] MEDS ORDERED: HYDROCODONE/APAP (5/325) TAB PO PRN (06:30)
[2017-01-28] MEDS ORDERED: METHYLERGONOVINE 0.2 MG INJ IM PRN (06:30)
[2017-01-28] MEDS ORDERED: LANOLIN 7 GM TUBE TOP PRN (06:30)
[2017-01-28] MEDS ORDERED: CARBOPROST 250 MCG INJ IM PRN (06:30)
[2017-01-28 06:40] VITALS: BP 110/57; PULSE 66; RESP 18
[2017-01-28] MEDS: IBUPROFEN 600 MG TAB PO SCH ×4 (07:30→23:42)
[2017-01-28 07:45] VITALS: BP 108/61; PULSE 83; RESP 16
[2017-01-28] MEDS: SENNA/DOCUSATE NA (8.6MG/50MG) TAB PO SCH ×2 (09:10→21:52)
[2017-01-28 12:06] VITALS: BP 111/58; PULSE 76; RESP 18
[2017-01-28 15:22] VITALS: BP 104/51; PULSE 68; RESP 16
[2017-01-28 19:35] VITALS: BP 117/69; PULSE 89; RESP 19
[2017-01-29 03:40] VITALS: BP 98/56; PULSE 72; RESP 18
[2017-01-29] MEDS: IBUPROFEN 600 MG TAB PO SCH ×3 (05:30→18:38)
[2017-01-29 08:30] VITALS: BP 108/60; PULSE 72; RESP 16
--- NOTE | 2017-01-29 08:38 | QN ---
Documentation Comment No complaint Afebrile VSS Fundus firm Lochia scant PPD #1 stable Routine pp care. SETH VELEZ MD Jan 29, 2017 08:38
[2017-01-29] MEDS: SENNA/DOCUSATE NA (8.6MG/50MG) TAB PO SCH ×2 (08:54→21:00)
[2017-01-29 09:40] LABS: BASOPHILS % 0.4 % (0.0-2.0); EOSINOPHILS # 0.1 10^3/ul (0.0-0.5); EOSINOPHILS % 1.4 % (0.0-7.0); HEMATOCRIT 33.4 % (37.0-47.0); HEMOGLOBIN 10.8 g/dl (12.0-16.0); LYMPHOCYTES # 1.9 10^3/ul (0.8-2.9); LYMPHOCYTES % 20.1 % (15.0-51.0); MEAN CORPUSCULAR HEMOGLOBIN 27.7 pg (29.0-33.0); MEAN CORPUSCULAR HGB CONC 32.3 g/dl (32.0-37.0); MEAN CORPUSCULAR VOLUME 85.6 fl (82.0-101.0); MEAN PLATELET VOLUME 11.1 fl (7.4-10.4); MONOCYTE # 0.6 10^3/ul (0.3-0.9); MONOCYTES % 5.7 % (0.0-11.0); NEUTROPHIL # 6.8 10^3/ul (1.6-7.5); PLATELET COUNT 185 10^3/UL (140-415); RED CELL DISTRIBUTION WIDTH 16.1 % (11.5-14.5); WHITE BLOOD COUNT 9.6 10^3/ul (4.8-10.8)
[2017-01-29 16:16] VITALS: BP 104/63; PULSE 68; RESP 16
[2017-01-29 20:00] VITALS: BP 108/64; PULSE 70; RESP 18
[2017-01-30 04:05] VITALS: BP 110/66; PULSE 68; RESP 20
[2017-01-30] MEDS: IBUPROFEN 600 MG TAB PO SCH ×3 (06:00→12:20)
[2017-01-30 08:15] VITALS: BP 105/61; PULSE 76; RESP 16
[2017-01-30] MEDS ORDERED: DIPHTH/TET/ACEL PERTUSS (ADULT) 0.5 ML VIAL IM* ONE (09:00)
[2017-01-30] MEDS: SENNA/DOCUSATE NA (8.6MG/50MG) TAB PO SCH (09:00)
--- NOTE | 2017-01-30 09:30 | DS ---
Date/Time of Note Date/Time of Note DATE: 01/30/17 TIME: 09:29 Obstetrical Discharge Record Final Diagnosis Final Diagnosis: Term delivered Vaginal Delivery Obstetrical Delivery: Spontaneous Condition on Discharge Physical Assessment Voiding: Yes Bowel Movement: Yes Breast: Soft, non-tender, Filling Fundus: Firm Calf Tenderness: No Patient Condition: Stable SETH VELEZ MD Jan 30, 2017 09:30
== END 2017-01-30 15:30 | disposition home or self-care (01) | DRG 775 ==
LOC: OBT 13:34 → L-D 13:34 → OBT 15:05 → L-D 15:05 → PP1 01-28 06:07
PROVIDERS: ADMIT Obstetrics & Gynecology; ATTEND Obstetrics & Gynecology
PROC: 10E0XZZ Delivery of Products of Conception, External Approach (ICD-10-PCS; principal; 2017-01-28)
DX: O80 Encounter for full-term uncomplicated delivery (principal); Z86.32 Personal history of gestational diabetes; Z3A.39 39 weeks gestation of pregnancy; Z37.0 Single live birth
CPT/HCPCS: 62319; 76815; 82962; 85025; 85610; 85730; 86592; 86900; 86901; 90715; G0463; J2590; J7120

== ENCOUNTER 2017-03-25 08:42 | Day surgery (SDC) | END 2017-03-25 16:29 | disposition home or self-care (01) ==